=== PATIENT | female | born 1970 | race Hispanic/Latino ===

== ENCOUNTER 2017-07-19 13:51 | Emergency (ER) | payer BC ==
[2017-07-19] MEDS ORDERED: ASPIRIN PO ONE (14:53)
--- NOTE | 2017-07-19 14:56 | Emergency Department Report ---
Blank Doc - Documentation Documentation: Patient is a 46-year-old female past history of hypertension as well as CHF was complaining of chest pain. Patient states it occurred last night briefly and then subsided but has been constant since this morning. Patient states that she has had some pedal edema as well. Patient has shortness of breath but denies any cough or congestion. Patient states as a pressure-like sensation in the chest. Patient will be moved to the main area for cardi risk stratification labs chest x-ray. Ac
--- NOTE | 2017-07-19 15:19 | XRay Report ---
ROUTINE CHEST, TWO VIEWS: HISTORY: chest pain. The trachea, heart, mediastinal contour, lung armstrong and bony thorax are unremarkable. IMPRESSION: Unremarkable chest x-ray. No change since 05/14/15.
[2017-07-19 15:49] LABS: Basophils # (Auto) 0.1 K/mm3 (0.0-0.1); Basophils % (Auto) 0.8 % (0.0-1.8); Eosinophils # (Auto) 0.5 K/mm3 (0.0-0.4); Eosinophils % (Auto) 5.3 % (0.0-4.3); Hematocrit 43.5 % (30.3-42.9); Hemoglobin 14.6 gm/dl (10.1-14.3); Lymphocytes # (Auto) 2.7 K/mm3 (1.2-5.4); Mean Corpuscular HGB Conc 34 % (30-34); Mean Corpuscular Hemoglobin 32 pg (28-32); Mean Corpuscular Volume 97 fl (79-97); Monocytes # (Auto) 0.8 K/mm3 (0.0-0.8); Monocytes % (Auto) 8.5 % (0.0-7.3); Platelet Count 195 K/mm3 (140-440); Red Blood Count 4.51 M/mm3 (3.65-5.03)
[2017-07-19 15:52] LABS: INR 0.93 (0.87-1.13)
[2017-07-19 15:53] LABS: Partial Thromboplastin Time 29.6 Sec. (24.2-36.6)
[2017-07-19 16:11] LABS: Alanine Aminotransferase 129 units/L (7-56); Albumin 4.2 g/dL (3.9-5); BUN/Creatinine Ratio 13; Blood Urea Nitrogen 10 mg/dL (7-17); Calcium 9.1 mg/dL (8.4-10.2); Hemolysis Index 6; Lipase 41 units/L (13-60)
[2017-07-19] MEDS ORDERED: NACL 0.9% 500 ML 500 ML IV ONE (18:00)
[2017-07-19] MEDS ORDERED: SUBLIMAZE IV ONE (18:00)
[2017-07-19] MEDS ORDERED: ZOFRAN IV ONE (18:00)
--- NOTE | 2017-07-19 18:06 | Emergency Department Report ---
HPI - General Chief Complaint: Chest Pain Time Seen by Provider: 07/19/17 14:53 - HPI HPI: The patient's a 46yo female who presents for evaluation of chest pain. The patient reports on and off chest pain since last night, midsternal in location, sharp and at times burning in quality, currently mild to moderate severity, exacerbated with coughing. She states that she has also experienced some episodes of transient shortness of breath, but has no shortness of breath now whatsoever. She admits to experiencing severe anxiety since last night as well. The patient denies fever, syncope, hemoptysis, unilateral leg swelling, suicidal or homicidal ideations, hallucinations, oral contraceptive use, recent immobilization, history of DVT or PE, hx of recent cancer. ED Past Medical Hx - Past Medical History Hx Congestive Heart Failure: Yes Hx COPD: Yes - Surgical History Past Surgical History?: Yes Additional Surgical History: CONE - Social History Smoking Status: Former Smoker Substance Use Type: None - Medications Home Medications: Home Medications Medication Instructions Recorded Confirmed Last Taken Type ALPRAZolam [Xanax TAB] 1 mg PO TID PRN 05/14/15 05/14/15 05/13/15 15:00 History Furosemide [Lasix TAB] 20 mg PO QDAY 05/14/15 05/14/15 05/14/15 09:00 History Potassium Chloride [K-Dur] 10 meq PO QDAY 05/14/15 05/14/15 05/14/15 09:00 History Tiotropium Br/Olodaterol HCl 1 puff IH QDAY 05/14/15 05/14/15 05/14/15 09:00 History [Stiolto Respimat Inhal [place]] traMADol [Ultram 50 MG tab] 50 mg PO Q6HR PRN #20 tablet 05/14/15 Unknown Rx Cyclobenzaprine HCl [Flexeril 5 MG 5 mg PO Q8HR PRN #15 tab 07/19/17 Unknown Rx TAB] Omeprazole Magnesium [PriLOSEC Otc] 20 mg PO QDAY #14 tablet. 07/19/17 Unknown Rx ED Review of Systems ROS: Stated complaint: CHEST PAIN/SHORTNESS OF BREATH Other details as noted in HPI Constitutional: denies: fever ENT: denies: throat or neck pain Respiratory: denies: cough, shortness of breath Cardiovascular: reports: chest pain Endocrine: denies unexplained weight loss or gain Gastrointestinal: denies: abdominal pain, nausea Genitourinary: denies: dysuria Musculoskeletal: denies: leg swelling Skin: denies: rash Neurological: denies: headache Hematological/Lymphatic: denies: easy bleeding or easy bruising Psych: denies sadness or hopelessness Physical Exam - Physical Exam Vital Signs: Vital Signs 07/19/17 07/19/17 07/19/17 14:09 16:20 16:30 Temperature 98.2 F Pulse Rate 91 H 78 75 Respiratory 12 Rate Blood Pressure 102/65 108/62 O2 Sat by Pulse 96 100 Oximetry 07/19/17 07/19/17 07/19/17 16:45 17:00 17:15 Temperature Pulse Rate 70 73 85 Respiratory 18 18 12 Rate Blood Pressure 100/61 91/63 88/64 O2 Sat by Pulse 98 97 98 Oximetry Physical Exam: General: well-nourished, well-developed, no acute distress Head: Normocephalic, atraumatic Eyes: normal sclera ENT: Mucous membranes are pale and dry Neck: trachea midline, neck supple, No neck stiffness, no cervical adenopathy Respiratory: Breath sounds equal bilaterally, no wheezing, rales, or rhonchi Cardio: S1 and S2 present, no murmurs, rubs, gallops, capillary refill is delayed Abdomen: Normoactive bowel sounds, soft abdomen, no rigidity, no guarding or rebound tenderness Musc: No pitting edema Skin: No rash Neuro: no facial drooping, normal speech Psych: Normal affect ED Course Vital Signs 07/19/17 07/19/17 07/19/17 14:09 16:20 16:30 Temperature 98.2 F Pulse Rate 91 H 78 75 Respiratory 12 Rate Blood Pressure 102/65 108/62 O2 Sat by Pulse 96 100 Oximetry 07/19/17 07/19/17 07/19/17 16:45 17:00 17:15 Temperature Pulse Rate 70 73 85 Respiratory 18 18 12 Rate Blood Pressure 100/61 91/63 88/64 O2 Sat by Pulse 98 97 98 Oximetry ED Medical Decision Making - Lab Data Result diagrams: 07/19/17 15:24 07/19/17 15:24 - Medical Decision Making The patient was seen and examined by myself. The patient is placed on a phototypesetting equipment monitor and continuous pulse ox. On initial evaluation, the patient was found to be in no distress. EKG was negative for findings suggestive of acute cardiac infarct. Labs and imaging are obtained. The patient was given IV pain medicine, and 1 L normal saline fluid bolus for treatment of her dehydration. Chest x-ray is negative for pneumothorax, focal consolidation, pulmonary vascular congestion, pleural effusion, or other obvious acute cardiopulmonary disease process. Lab results were non-concerning including levels of troponin, WBC, hemoglobin, hematocrit, electrolytes, renal function. CT scan of the chest is negative for pulmonary embolism, aortic dissection, or other acute mediastinal pathology. The patient was reevaluated and reported that their symptoms were markedly improved. As the patient has a NAHID risk score less than 2, and a well's score less than 2, the patient is at low risk of ACS or pulmonary emboli etiology of their symptoms. The patient is stable for discharge with outpatient follow-up. The patient is given follow-up and return instructions. The patient expressed understanding and agreed with the plan. The patient is discharged in stable condition. Critical care attestation.: If time is entered above; I have spent that time in minutes in the direct care of this critically ill patient, excluding procedure time. ED Disposition Clinical Impression: Acute chest pain Disposition: DC-01 TO HOME OR SELFCARE Is pt being admited?: No Does the pt Need Aspirin: No Condition: Stable Instructions: Chest Pain (ED), Costochondritis (ED) Referrals: PRIMARY CARE, [Primary Care Provider] - 3-5 Days [facility] [Outside] - 3-5 Days Time of Disposition: 18:02 NAHID score - Nahid Score Age > 65: (0) No Aspirin use within the Past 7 Days: (0) No 3 or more CAD Risk Factors: (0) No 2 or more Angina events in past 24 hrs: (1) Yes Known CAD with more than 50% Stenosis: (0) No Elevated Cardiac Markers: (0) No ST Deviation Greater than 0.5mm: (0) No NAHID Score: 1
--- NOTE | 2017-07-19 19:48 | Cat Scan Report ---
FINAL REPORT EXAM: CT ANGIO CHEST HISTORY: chest pain TECHNIQUE: CT chest CT angiogram with reconstructions PRIORS: None. FINDINGS: There is no evidence of filling defect within the central pulmonary vasculature to suggest the presence of acute pulmonary embolus. No evidence of mediastinal pathologic lymph node enlargement Heart and great vessels are unremarkable. The aorta is normal in caliber. No focal pulmonary infiltrate identified. No pleural fluid collection seen. No acute pulmonary abnormality noted. Visualized portion of the upper abdomen demonstrates no acute change. IMPRESSION: Negative. No CT evidence of acute pulmonary embolus
[2017-07-19] MEDS ORDERED: SUBLIMAZE ONE (20:16)
[2017-07-19] MEDS ORDERED: ZOFRAN ONE (20:17)
[2017-07-19 20:58] VITALS: BP 111/83
== END 2017-07-19 21:01 | disposition home or self-care (01) ==
LOC: ED 13:51
DX: R07.89 Other chest pain (principal); Z87.891 Personal history of nicotine dependence; Z86.718 Personal history of other venous thrombosis and embolism
CPT/HCPCS: 36415; 71046; 71275; 80053; 83690; 83880; 84484; 85025; 85379; 85610; 85730; 93005; 93010; 96374; 96375; 99285; J2405; J3010; Q9967

== ENCOUNTER 2021-06-17 09:38 | Emergency (ER) | payer BC ==
[2021-06-17] MEDS ORDERED: ASPIRIN 81 MG TAB CHEW PO ONE (11:55)
--- NOTE | 2021-06-17 12:01 | Emergency Department Report ---
ED Chest Pain HPI - General Chief Complaint: Chest Pain Stated Complaint: CHEST PAIN Time Seen by Provider: 06/17/21 11:50 Source: patient Mode of arrival: Wheelchair Limitations: No Limitations - History of Present Illness Initial Comments: Patient is 50 years old female with history of congestive heart failure, hypertension, COPD and obesity. Patient presented to the ER with a chief complaint of chest pain left-sided sharp radiated to the neck and left shoulder. Patient stated that pain associated with mild shortness of breath. Patient denies any fever or chills. MD Complaint: chest pain -: This morning Onset: during rest Pain Location: left chest Pain Radiation: back, neck, jaw/teeth Severity scale (0 -10): 7 Quality: tightness Consistency: intermittent - Related Data Home Medications Medication Instructions Recorded Confirmed Last Taken ALPRAZolam [Xanax TAB] 1 mg PO TID PRN 05/14/15 05/14/15 05/13/15 15:00 Furosemide [Lasix TAB] 20 mg PO QDAY 05/14/15 05/14/15 05/14/15 09:00 Potassium Chloride [K-Dur] 10 meq PO QDAY 05/14/15 05/14/15 05/14/15 09:00 Tiotropium Br/Olodaterol HCl 1 puff IH QDAY 05/14/15 05/14/15 05/14/15 09:00 [Stiolto Respimat Inhal [place]] Previous Rx's Medication Instructions Recorded Last Taken Type traMADoL [Ultram 50 MG tab] 50 mg PO Q6HR PRN #20 tablet 05/14/15 Unknown Rx Cyclobenzaprine HCl [Flexeril 5 MG 5 mg PO Q8HR PRN #15 tab 07/19/17 Unknown Rx TAB] Omeprazole Magnesium [PriLOSEC Otc] 20 mg PO QDAY #14 tablet. 07/19/17 Unknown Rx Allergies Allergy/AdvReac Type Severity Reaction Status Date / Time No Known Allergies Allergy Unverified 05/14/15 12:11 Heart Score - HEART Score History: Slightly suspicious EKG: Normal Age: 45-65 Risk factors: 1-2 risk factors Troponin: < normal limit HEART Score: 2 - EKG Read Time Time EKG Completed: 09:49 EKG Read Time: 09:49 - Critical Actions Critical Actions: 0-3 pts:0.9-1.7%risk of adverse cardiac event.Candidate for discharge ED Review of Systems ROS: Stated complaint: CHEST PAIN Other details as noted in HPI Comment: All other systems reviewed and negative Constitutional: denies: chills, fever Respiratory: shortness of breath, SOB with exertion, SOB at rest. denies: cough Cardiovascular: chest pain, dyspnea on exertion, orthopnea. denies: palpitations Gastrointestinal: denies: abdominal pain, nausea, vomiting, diarrhea, constipation, hematemesis Musculoskeletal: denies: back pain ED Past Medical Hx - Past Medical History Hx Congestive Heart Failure: Yes Hx COPD: Yes - Surgical History Additional Surgical History: CONE - Social History Smoking Status: Former Smoker Substance Use Type: None - Medications Home Medications: Home Medications Medication Instructions Recorded Confirmed Last Taken Type ALPRAZolam [Xanax TAB] 1 mg PO TID PRN 05/14/15 05/14/15 05/13/15 15:00 History Furosemide [Lasix TAB] 20 mg PO QDAY 05/14/15 05/14/15 05/14/15 09:00 History Potassium Chloride [K-Dur] 10 meq PO QDAY 05/14/15 05/14/15 05/14/15 09:00 History Tiotropium Br/Olodaterol HCl 1 puff IH QDAY 05/14/15 05/14/15 05/14/15 09:00 History [Stiolto Respimat Inhal [place]] traMADoL [Ultram 50 MG tab] 50 mg PO Q6HR PRN #20 tablet 05/14/15 Unknown Rx Cyclobenzaprine HCl [Flexeril 5 MG 5 mg PO Q8HR PRN #15 tab 07/19/17 Unknown Rx TAB] Omeprazole Magnesium [PriLOSEC Otc] 20 mg PO QDAY #14 tablet. 07/19/17 Unknown Rx ED Physical Exam - General Limitations: No Limitations General appearance: alert, in no apparent distress - Head Head exam: Present: atraumatic, normocephalic, normal inspection - Eye Eye exam: Present: normal appearance - ENT ENT exam: Present: normal exam, normal orophraynx, mucous membranes moist - Neck Neck exam: Present: normal inspection, full ROM. Absent: tenderness, meningismus - Respiratory Respiratory exam: Present: normal lung sounds bilaterally. Absent: respiratory distress, wheezes - Cardiovascular Cardiovascular Exam: Present: regular rate, normal rhythm, normal heart sounds - GI/Abdominal GI/Abdominal exam: Present: soft, normal bowel sounds. Absent: distended, tenderness, guarding, rebound, rigid, mass, bruit, pulsatile mass - Extremities Exam Extremities exam: Present: full ROM, normal capillary refill, pedal edema - Back Exam Back exam: Present: normal inspection, full ROM. Absent: CVA tenderness (R), CVA tenderness (L) - Neurological Exam Neurological exam: Present: alert, oriented X3, CN II-XII intact - Psychiatric Psychiatric exam: Present: normal mood - Skin Skin exam: Present: warm, intact, normal color ED Course Vital Signs 06/17/21 06/17/21 06/17/21 09:48 09:57 10:02 Temperature 97.5 F L Pulse Rate 96 H 91 H Respiratory 20 Rate Blood Pressure 120/77 [Left] O2 Sat by Pulse 97 Oximetry 06/17/21 06/17/21 11:11 13:08 Temperature Pulse Rate 65 85 Respiratory 18 18 Rate Blood Pressure 130/68 129/80 [Left] O2 Sat by Pulse 99 99 Oximetry NAHID score - Nahid Score Age > 65: (0) No Aspirin use within the Past 7 Days: (0) No 3 or more CAD Risk Factors: (0) No 2 or more Angina events in past 24 hrs: (1) Yes Known CAD with more than 50% Stenosis: (0) No Elevated Cardiac Markers: (0) No ST Deviation Greater than 0.5mm: (0) No NAHID Score: 1 ED Medical Decision Making - Lab Data Result diagrams: 06/17/21 12:00 06/17/21 12:00 - EKG Data -: EKG Interpreted by Nc EKG shows normal: sinus rhythm Rate: normal - EKG Data Interpretation: no acute changes - Radiology Data Radiology results: report reviewed - Medical Decision Making Patient is 50 years old female with history of congestive heart failure, hypertension, COPD and obesity. Patient presented to the ER with a chief complaint of chest pain left-sided sharp radiated to the neck and left shoulder. Patient stated that pain associated with mild shortness of breath. Patient denies any fever or chills. EKG is unremarkable with no evidence of ST elevation or depression. Chest x-ray is unremarkable. Labs reviewed and is negative including a negative troponin x 2. Heart score is 2. No clinical evidence of PE. Patient symptom is atypical. Patient symptoms completely resolved with morphine and Zofran. 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 Critical care attestation.: If time is entered above; I have spent that time in minutes in the direct care of this critically ill patient, excluding procedure time. ED Disposition Clinical Impression: Acute chest pain Disposition: HOME / SELF CARE / HOMELESS Is pt being admited?: No Condition: Stable Instructions: Chest Pain (ED), Nonspecific Chest Pain, Adult Referrals: PRIMARY CARE, [Primary Care Provider] - 3-5 Days
--- NOTE | 2021-06-17 12:23 | XRay Report ---
CHEST 1 VIEW 06/17/2021 11:15 AM INDICATION / CLINICAL INFORMATION: Chest pain for one day. COMPARISON: None currently available. FINDINGS: SUPPORT DEVICES: None. HEART / MEDIASTINUM: The heart size and pulmonary vasculature are normal. The aorta is normal in leni l[place]. LUNGS / PLEURA: No significant pulmonary or pleural abnormality. No pneumothorax. ADDITIONAL FINDINGS: No significant additional findings. IMPRESSION: No acute findings. Signer Name: Cecilio Durán MD Signed: 06/17/2021 12:18 PM Workstation Name: [id number]
[2021-06-17 12:35] LABS: Basophils # (Auto) 0.1 K/mm3 (0.0-0.1); Basophils % (Auto) 1.2 % (0.0-1.8); Eosinophils # (Auto) 0.3 K/mm3 (0.0-0.4); Eosinophils % (Auto) 3.1 % (0.0-4.3); Hematocrit 40.8 % (30.3-42.9); Hemoglobin 13.8 gm/dl (10.1-14.3); Lymphocytes # (Auto) 2.2 K/mm3 (1.2-5.4); Lymphocytes % (Auto) 22.6 % (13.4-35.0); Mean Corpuscular HGB Conc 34 % (30-34); Mean Corpuscular Volume 94 fl (79-97); Monocytes # (Auto) 0.7 K/mm3 (0.0-0.8); Monocytes % (Auto) 6.9 % (0.0-7.3); Platelet Count 232 K/mm3 (140-440); Red Blood Count 4.34 M/mm3 (3.65-5.03); Red Cell Distribution Width 14.8 % (13.2-15.2)
[2021-06-17 12:44] LABS: INR 0.89 (0.87-1.13)
[2021-06-17 12:45] LABS: Partial Thromboplastin Time 24.8 Sec. (24.2-36.6)
[2021-06-17 13:00] LABS: Alanine Aminotransferase 27 units/L (7-56); Albumin 3.9 g/dL (3.9-5); Blood Urea Nitrogen 11 mg/dL (7-17); Calcium 9.3 mg/dL (8.4-10.2); Hemolysis Index 2
[2021-06-17 13:01] LABS: BUN/Creatinine Ratio 18
[2021-06-17] MEDS ORDERED: MORPHINE 4 MG/1 ML INJ IV ONE (13:30)
[2021-06-17] MEDS ORDERED: ONDANSETRON 4 MG/2 ML INJ IV ONE (13:30)
[2021-06-17 18:00] VITALS: BP 139/64
== END 2021-06-17 18:00 | disposition home or self-care (01) ==
LOC: ED 09:38
DX: R07.9 Chest pain, unspecified (principal); Z87.891 Personal history of nicotine dependence; Z86.79 Personal history of other diseases of the circulatory system
CPT/HCPCS: 36415; 71045; 80053; 83690; 83880; 84484; 85025; 85610; 85730; 93005; 96374; 96375; 99284; J2270; J2405